=== PATIENT | female | born 1980 | race Caucasian/White ===

== ENCOUNTER 2017-08-14 18:22 | Emergency (ER) | payer OTHER ==
[~2017-08-14] VITALS: Ht 157.5 cm; Wt 59.0 kg
[~2017-08-14 18:22] MED LIST: IBUPROFEN 600M600 MG PO; PREDNISONE 20MG20 MG PO; VICODIN1 TAB PO
--- NOTE | 2017-08-14 19:24 | [facility] Report ---
History of Present Issue Date/Time Seen by Provider 08/14/171922 Visit Reason Pt arrived:Walked Presenting Problem:PT C/O COUGH AND CHEST CONGESTION Location if Accident: Onset of symptoms date/time:/ or onset unknown for:MEDICAL HX UNKNOWN Have you (or family members/close friends) recently traveled outside the [place]? N If Yes, where/when: Have you had exposure to infectious disease within the past month? TB? Other? Specify: Patient states that she has been having cough and congestion State that she feels like it is draining from her sinuses down into her chest area States that her throat feels a little sore and irritated States that she came in hoping to get a shot and somthing to help with the cough ALLERGIES Coded Allergies: No Known Allergies (08/27/16) Home Medications Active Scripts HYDROCODONE/ACETAMINOPHEN (Vicodin 5-300 MG Tablet) 1 TAB PO Q6HP PRN PAIN MANAGEMENT #10 TAB Prov: 08/27/16 Reported Medications IBUPROFEN MICRONIZED (IBUPROFEN 600MG) 600 MG PO Q6HP PRN LOWER BACK PAIN History Medical History General CAD? No Angina: No UT: No Hypertension? No Hyperlipidemia? No CHF? No DVT? No PE? No COPD? No Asthma? No Anemia? No GERD? No Gastric ulcers? No GI Bleed? No Hernia? No Thyroid Problems? No Hypothyroidism? No CVA? No Seizures? No Diabetes? No Renal Insuffiency? No UTI? No Stones? No BPH? No GB Disease: No Nephritic Syndrome? No Asplenia? No Hepatitis? No Sickle Cell Disease? No Arthritis? No Migraines? No Cataracts? No Glaucoma? No MRSA? No HIV? No TB? No Anxiety? No Depression? No Cancer? No More? No Immunization HX DT/Tetanus NOT SURE Surgical Hx Previous Surgery?Y HYSTERECTOMY SINUS SURGERY ECTOPIC Social History Smoking Hx Smoker: Former Smoker Tobacco: No Packs/day < 1 Pack Alcohol Alcohol: Yes Review of Systems All Other Systems Reviewed and Negative Constitutional fever ENT nose congestion. Respiratory cough, denies shortness of breath, denies wheezing Physical Exam Vital Signs Vital Signs Date Time Temp Pulse Resp B/P Pulse O2 O2 Flow FiO2 Ox Delivery Rate 08/14 1946 98.1 78 20 117/68 100 08/14 1848 98.1 78 20 11768 100 General Appearance normal appearance, WD/WN, no apparent distress Ear, Nose, Throat nasal congestion, Throat red irritated, drainage noted in back of throat Respiratory Status Yes: trachea midline, chest symmetrical. No: respiratory distress. Lung Sounds bilateral: normal breath sounds, lungs clear. Cardiovascular normal exam, regular rate/rhythm Neurologic alert, normal exam, oriented x 3 Medical Decision Making LABS/Meds/Orders Pt receiving controlled substance in ED? No Results/Orders Current Medication Orders Sig/Charli Start time Last Medication Dose Route Stop Time Status Admin Ceftriaxone Sodium 1 GM ONCE ONE 08/14 1945 DC 08/14 IM 08/14 Lidocaine HCl 0 ONCE ONE 08/14 1945 DC 08/14 IM 08/14 Methylprednisolone 125 MG ONCE ONE 08/14 1945 DC 08/14 Sodium Succinate IM 08/14 Ceftriaxone Sodium 0 .STK-MED ONE 08/14 1935 DC .ROUTE Lidocaine HCl 0 .STK-MED ONE 08/14 1935 DC .ROUTE Methylprednisolone 0 .STK-MED ONE 08/14 1935 DC Sodium Succinate .ROUTE Departure Departure Time of Disposition 1933 Disposition DC Home or Self Care(routine) Clinical Impression Primary Impression: Upper respiratory infection Qualifiers: URI type: unspecified URI Qualified Code: J06.9 - Acute upper respiratory infection, unspecified Condition STABLE Referrals HANNAH METZGER (Family): 2 Days-Call Office if no improvement Patient Instructions Cough, DI for Cough -- Adult, Sore Throat Additional Instructions * Monitor Temp. Tylenol and/or Ibuprofen as needed. ER if fever is no less than 101 despite alternating Tylenol and Ibuprofen * Encourage fluids, water, Gatorade, powerade, pedialyte if /toddler/or child * Warm salt water gargles for throat irritation *Warm fluids *Sore throat lozenges *Sleep elevated *humidifier or vaporizer Lots of rest Increase fluids, water, Gatorade, powerade Discharge Counseling Counseled pt/family regarding diagnosis, medications/RX, home care, follow up needs Prescriptions Current Visit Scripts PROMETHAZINE/DEXTROMETHORPHAN (Promethazine-Dm Syrup) 5 ML PO Q6HP PRN cough #120 SYR Albuterol Sulfate (Proair Hfa) 2 PUFFS IH Q6HP PRN soa #1 INH Ref 1 at 1948
[2017-08-14] MEDS ORDERED: PROAIR HFA0.09 MG/AC IH (19:37)
[2017-08-14] MEDS ORDERED: PROMETHAZINE D118 ML PO (19:37)
[2017-08-14 19:46] VITALS: BP 117/68
== END 2017-08-14 19:53 | disposition home or self-care (01) ==
LOC: UTC 18:22
DX: J06.9 Acute upper respiratory infection, unspecified (principal); Z87.891 Personal history of nicotine dependence